=== PATIENT | female | born 1945 | race Caucasian/White ===

== ENCOUNTER 2017-03-08 05:33 | Day surgery (SDC) | payer MEDICARE, OTHER ==
[~2017-03-08 05:33] MED LIST: ABACAVIR300 M1; ALLEGRA PO; ATIVAN0.5 M1 PO; BYSTOLIC5 M1 PO; COLACE100 M1 PO; FOLIC ACID0.4 M1 PO; HYDROCHLOROTHIA25 M1 PO; LISINOPRIL10 M1 PO; MAGNESIUM250 M2 PO; MELATIN3 MG PO; PERCOCET 5-3251 EACH PO; POTASSIUM CHLO10 ME2 PO; SYNTHROID75 MC1 PO; TYLENOL325 M2 PO; VITAMIN D31000 UNI3 PO; VITAMIN E400 UNI8 PO; ZESTRIL10 M3 PO
[2017-03-08 06:30] LABS: BASO % 0.4 % (0-2); EOS % 4.8 % (0-7); EOSINOPHIL ABSOLUTE COUNT 0.1 tho/cmm (0.0-0.7); HGB-HEMOGLOBIN 9.4 gm/dl (12.0-15.5); LYMPH % 17.6 % (20-45); LYMPH ABSOLUTE COUNT 0.5 tho/cmm (0.8-4.5); MCH (MEAN CORPUSCULAR HGB) 33.3 pg (28.0-32.0); MCHC MEAN CORPUSCULAR HGB CONC 33.6 % (32.0-36.0); MCV (MEAN CELL VOLUME) 99.3 fl (82.0-96.0); MEAN PLATELET VOLUME 9.2 cmc (9.4-12.4); MONO % 9.5 % (0-12); MONOCYTE ABSOLUTE COUNT 0.3 tho/cmm (0.0-1.2); NEUTROPHIL ABSOLUTE COUNT 1.9 tho/cmm (1.6-8.0); NEUTROPHIL-AUTOMATED 1.9 tho/cmm (1.6-8.0); NEUTROPHILS % 67.7 % (40-80); PLATELET COUNT 135 tho/cmm (150-450); RED BLOOD COUNT 2.82 mil/cmm (4.00-5.20); RED CELL DISTRIBUTION WIDTH 14.7 % (12.4-16.4); WHITE BLOOD COUNT 2.7 tho/cmm (4.0-10.0)
[2017-03-08 06:50] LABS: ANION GAP 9 mmol/L (0-20); BLOOD UREA NITROGEN 27 mg/dl (6-24); CALCIUM 8.9 mg/dl (8.5-10.5); CARBON DIOXIDE-VENOUS 31 mmol/L (22-32); CHLORIDE 103 mmol/l (96-110); CREATININE 1.26 mg/dl (0.50-1.10); GLUCOSE 104 mg/dL (70-110); POTASSIUM 3.3 mmol/L (3.7-5.1); SODIUM 140 mmol/L (135-145); eGFR VALUE FOR BLACK 49 mL/Min
[2017-03-09] MEDS ORDERED: NORCO 5-325 TA1 EACH PO (10:52)
--- NOTE | 2017-03-09 11:34 | NUR ---
VIRTUAL CARE NOTE: PT DRESSED RESTING ON BED, AT BEDSIDE. DISCHARGE INSTRUCTIONS GIVEN TO PT AND , QUESTIONS ANSWERED. KATHERYN TEACHING REINFORCED, PT FEELS COMFORTABLE WITH DRAIN CARE AT HOME. INFORMED FLOOR NURSE DISCHARGE TEACHING DONE.
== END 2017-03-09 11:40 ==
LOC: SRG 05:33 → SHSC 05:36 → ORW 10:12 → PACU 12:58 → 5WD 14:00
PROVIDERS: Anesthesiology; Surgery
PROC: 0HTV0ZZ Resection of Bilateral Breast, Open Approach (ICD-10-PCS; principal; 2017-03-08)
DX: C50.412 Malignant neoplasm of upper-outer quadrant of left female breast (principal); C50.411 Malignant neoplasm of upper-outer quadrant of right female breast; C77.3 Secondary and unspecified malignant neoplasm of axilla and upper limb lymph nodes; I10 Essential (primary) hypertension; I25.10 Atherosclerotic heart disease of native coronary artery without angina pectoris; E03.9 Hypothyroidism, unspecified; F41.9 Anxiety disorder, unspecified; Z88.0 Allergy status to penicillin; Z88.2 Allergy status to sulfonamides; Z88.8 Allergy status to other drugs, medicaments and biological substances; Z79.899 Other long term (current) drug therapy; Z98.51 Tubal ligation status; Z98.890 Other specified postprocedural states
CPT/HCPCS: A9520; J0360; J1170; J2250; J3010; J7030